=== PATIENT | female | born 1980 | race Caucasian/White ===

== ENCOUNTER 2016-12-26 10:27 | Inpatient (IN) | payer MEDICAID ==
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
[2016-12-26 11:33] LABS: % IMMATURE GRANULYOCYTES 0.4 % (0.0-1.1); ABSOLUTE IMMATURE GRANULOCYTES 0.03 10^3/uL (0.00-0.10); ADD DIFF? NO; ADD MORPH? NO; ADD SCAN? NO; ATYPICAL LYMPHOCYTE FLAG 40 (0-99); FRAGMENT RBC FLAG 0 (0-99); HEMATOCRIT 36.4 % (38.0-47.0); HEMOGLOBIN 12.3 g/dL (12.6-16.3); LEFT SHIFT FLG 0 (0-99); LIPEMIA HEMOLYSIS FLAG 90 (0-99); MEAN CELL HEMOGLOBIN 32.5 pg (27.9-34.1); MEAN CELL HEMOGLOBIN CONCENTR. 33.8 g/dL (32.4-36.7); MEAN CELL VOLUME 96.3 fL (81.5-99.8); MEAN PLATELET VOLUME 9.4 fL (8.7-11.7); PLATELET CLUMPS FLAG 0 (0-99); PLATELET COUNT 389 10^3/uL (150-400); RED BLOOD CELL COUNT 3.78 10^6/uL (4.18-5.33); RED CELL DISTRIBUTION WIDTH 14.6 % (11.5-15.2)
[2016-12-26] MEDS ORDERED: HYDROmorphONE/DILAUDID 1 MG/ML INJ IVP ONE ×3 (11:43→15:25)
[2016-12-26] MEDS ORDERED: ONDANSETRON 4 MG/2 ML VIAL ONE (11:51)
[2016-12-26] MEDS ORDERED: ONDANSETRON 4 MG/2 ML VIAL IVP ONE (11:52)
[2016-12-26 11:55] LABS: ALANINE AMINOTRANSFERASE 35 IU/L (9-52); ALBUMIN 2.9 g/dL (3.5-5.0); ALKALINE PHOSPHATASE 86 IU/L (38-126); ANION GAP 13 mEq/L (8-16); ASPARTATE AMINOTRANSFERASE 46 IU/L (14-46); BILIRUBIN,TOTAL 0.4 mg/dL (0.1-1.4); BILIRUBIN-CONJUGATED 0.4 mg/dL (0.0-0.5); CALCIUM 8.2 mg/dL (8.5-10.4); CARBON DIOXIDE 24 mEq/l (22-31); CHLORIDE 106 mEq/L (97-110); CREATININE 0.6 mg/dL (0.6-1.0); GLOMERULAR FILTRATION RATE > 60; GLUCOSE 71 mg/dL (70-100); POTASSIUM 3.6 mEq/L (3.5-5.2); SODIUM 143 mEq/L (134-144)
[2016-12-26] MEDS ORDERED: IOPAMIDOL (ISOVUE-300) 100 ML BTL ONE (12:17)
[2016-12-26 12:52] LABS: COLOR YELLOW; LEUKOCYTE ESTERASE,URINE NEGATIVE (NEGATIVE); NITRITE,URINE NEGATIVE (NEGATIVE)
[2016-12-26 12:57] LABS: MUCUS TRACE /lpf (NONE-1+); RBC,URINE 25-50 /hpf (0-3); WBC,URINE 15-25 /hpf (0-3)
[2016-12-26] MEDS ORDERED: HYDROmorphONE/DILAUDID 1 MG/ML INJ ONE (13:18)
[2016-12-26] MEDS ORDERED: ONDANSETRON DISINTEGRATING 4 MG TAB PO PRN (17:13)
[2016-12-26] MEDS ORDERED: ONDANSETRON 4 MG/2 ML VIAL IVP PRN (17:13)
[2016-12-26] MEDS ORDERED: NS 1,000 ML IV SCH (17:15)
[2016-12-26] MEDS: HYDROmorphONE/DILAUDID 1 MG/ML INJ IVP PRN ×2 (17:33→22:58)
[2016-12-26 18:01] LABS: HEMATOCRIT 35.3 % (38.0-47.0); HEMOGLOBIN 12.3 g/dL (12.6-16.3)
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
[2016-12-26] MEDS ORDERED: Linaclotide [Linzess] 145 MCG PO PRN (19:01)
[2016-12-26] MEDS ORDERED: ALBUTEROL 200 PUFFS/18 GM MDI IH PRN (19:01)
--- NOTE | 2016-12-26 19:21 | PDMN ---
Medical Necessity Medical necessity: Pt meets INPT criteria per MD; est. LOS >2 MN for eval/tx of ileus, suspected [id number] pancreatitis; hx small bowel resection/short bowel syndrome, endocarditis, chronic pancreatitis, CHI, seizure disorder, chronic head pain, multiple orthopedic surgeries per H&P.
[2016-12-26] MEDS: levETIRAcetam 250 MG TAB PO SCH (20:10)
[2016-12-26] MEDS: oxyCODONE IR 15 MG TAB PO SCH (20:10)
[2016-12-26] MEDS: clonazePAM 1 MG TAB PO PRN (20:11)
[2016-12-26] MEDS: PANTOPRAZOLE SODIUM 40 MG VIAL IVP SCH (20:12)
[2016-12-26] MEDS ORDERED: SUMAtriptan 25 MG TAB PO ONE (21:44)
--- NOTE | 2016-12-26 21:45 | HOSPPROG ---
Hospitalist Progress Note Assessment/Plan: discussed ct and ultrasound results w [employer] findings do not have malignant potential rec outpt follow up ultrasounds no pelvic complaints Objective: Vital Signs Temp Pulse Resp BP Pulse Ox 36.4 C 92 18 117/77 99 12/26/16 20:01 12/26/16 20:01 12/26/16 20:01 12/26/16 20:01 12/26/16 20:01 Laboratory Results 12/26/16 17:38 12/25/16 12/26/16 12/27/16 05:59 05:59 05:59 Intake Total 1125 Balance 1125 ICD10 Worksheet Patient Problems: Problems Problem Status Onset Abdominal pain Acute Paralytic ileus of large intestine Acute Pancreatitis Active
[2016-12-27 05:43] LABS: % IMMATURE GRANULYOCYTES 0.4 % (0.0-1.1); ABSOLUTE IMMATURE GRANULOCYTES 0.02 10^3/uL (0.00-0.10); ADD DIFF? NO; ADD MORPH? NO; ADD SCAN? NO; ATYPICAL LYMPHOCYTE FLAG 70 (0-99); FRAGMENT RBC FLAG 0 (0-99); HEMATOCRIT 32.5 % (38.0-47.0); HEMOGLOBIN 11.1 g/dL (12.6-16.3); LEFT SHIFT FLG 0 (0-99); LIPEMIA HEMOLYSIS FLAG 90 (0-99); MEAN CELL HEMOGLOBIN 33.1 pg (27.9-34.1); MEAN CELL HEMOGLOBIN CONCENTR. 34.2 g/dL (32.4-36.7); PLATELET CLUMPS FLAG 0 (0-99); PLATELET COUNT 335 10^3/uL (150-400); RED BLOOD CELL COUNT 3.35 10^6/uL (4.18-5.33)
[2016-12-27 05:54] LABS: ALANINE AMINOTRANSFERASE 31 IU/L (9-52); ALBUMIN 1.7 g/dL (3.5-5.0); ALKALINE PHOSPHATASE 64 IU/L (38-126); ANION GAP 7 mEq/L (8-16); ASPARTATE AMINOTRANSFERASE 45 IU/L (14-46); BILIRUBIN,TOTAL 0.3 mg/dL (0.1-1.4); CARBON DIOXIDE 20 mEq/l (22-31); CHLORIDE 112 mEq/L (97-110); CREATININE 0.6 mg/dL (0.6-1.0); GLOMERULAR FILTRATION RATE > 60; GLUCOSE 55 mg/dL (70-100); POTASSIUM 3.3 mEq/L (3.5-5.2); SODIUM 139 mEq/L (134-144); TOTAL PROTEIN 4.3 g/dL (6.3-8.2)
[2016-12-27] MEDS: PANTOPRAZOLE SODIUM 40 MG VIAL IVP SCH ×2 (08:51→20:41)
[2016-12-27] MEDS: levETIRAcetam 250 MG TAB PO SCH ×2 (08:51→20:27)
[2016-12-27] MEDS: oxyCODONE IR 15 MG TAB PO SCH ×3 (08:51→22:31)
[2016-12-27] MEDS: LIPASE 24,000/AMYLASE/PROTEASE (CREON) 1 CAP PO SCH ×3 (08:52→18:39)
[2016-12-27] MEDS: ENOXAPARIN 40 MG/0.4 ML SYR SC SCH (08:52)
[2016-12-27] MEDS ORDERED: Herbals/Supplements -Info Only PO SCH (09:00)
[2016-12-27] MEDS ORDERED: KETOROLAC 30 MG/1 ML SDV IVP ONE ×2 (11:54→22:00)
[2016-12-27] MEDS: clonazePAM 1 MG TAB PO PRN ×2 (12:22→20:27)
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
--- NOTE | 2016-12-27 14:19 | HOSPPROG ---
Hospitalist Progress Note Assessment/Plan: 36y female with c/o abd pain. First encounter, chart reviewed. D/W CM with pt. #Abd pain -likely related to chronic pancreatitis -cont supportive care -clear liquids if tolerated #Psych -appreciate CM -arrange outpt fu #Multiple chronic medical problems -stable #Ileus -normal bowel sounds -follow #Narcotic dep -cont home meds -no increase in narcotics #Dispo - in am if can stay hydrated -needs extensive outpt follow up Subjective: Tearful. Mild pain continues. Lots of life stress. Objective: Vital Signs Temp Pulse Resp BP Pulse Ox 37.2 C 107 H 16 84/49 L 93 12/27/16 08:00 12/27/16 08:00 12/27/16 08:00 12/27/16 08:00 12/27/16 08:00 Laboratory Results 12/27/16 05:29 12/27/16 05:29 12/26/16 12/27/16 12/28/16 05:59 05:59 05:59 Intake Total 1125 Balance 1125 - Physical Exam Constitutional: chronically ill appearing, uncomfortable, unkempt Eyes: PERRL, anicteric sclera, EOMI Ears, Nose, Mouth, Throat: moist mucous membranes, hearing normal, ears appear normal Cardiovascular: regular rate and rhythym, No JVD, No edema Respiratory: no respiratory distress, no rales or rhonchi, reduced air movement Gastrointestinal: distension, No tenderness, No ascites, No guarding Skin: warm, normal color, No erythema Musculoskeletal: normal joint ROM, no joint effusions, generalized weakness Neurologic: AAOx3 Psychiatric: anxious, depressed, poor insight, poor judgement ICD10 Worksheet Patient Problems: Problems Problem Status Onset Pancreatitis Active Paralytic ileus of large intestine Acute Abdominal pain Acute
[2016-12-27] MEDS ORDERED: diphenhydrAMINE 25 MG CAP PO ONE (22:00)
[2016-12-28 00:02] VITALS: O2SAT 95
[2016-12-28 05:30] LABS: ALANINE AMINOTRANSFERASE 36 IU/L (9-52); ALBUMIN 1.8 g/dL (3.5-5.0); ALKALINE PHOSPHATASE 59 IU/L (38-126); ANION GAP 8 mEq/L (8-16); ASPARTATE AMINOTRANSFERASE 37 IU/L (14-46); CALCIUM 7.2 mg/dL (8.5-10.4); CARBON DIOXIDE 22 mEq/l (22-31); CHLORIDE 112 mEq/L (97-110); CREATININE 0.6 mg/dL (0.6-1.0); GLOMERULAR FILTRATION RATE > 60; GLUCOSE 79 mg/dL (70-100); SODIUM 142 mEq/L (134-144)
[2016-12-28 05:38] LABS: BILIRUBIN,TOTAL < 0.1 mg/dL (0.1-1.4)
[2016-12-28 05:39] LABS: ADD MORPH? NO; ADD SCAN? YES; ATYPICAL LYMPHOCYTE FLAG 100 (0-99); FRAGMENT RBC FLAG 0 (0-99); HEMATOCRIT 29.6 % (38.0-47.0); HEMOGLOBIN 10.5 g/dL (12.6-16.3); LEFT SHIFT FLG 0 (0-99); LIPEMIA HEMOLYSIS FLAG 90 (0-99); MEAN CELL HEMOGLOBIN 33.8 pg (27.9-34.1); MEAN CELL HEMOGLOBIN CONCENTR. 35.5 g/dL (32.4-36.7); MEAN CELL VOLUME 95.2 fL (81.5-99.8); MEAN PLATELET VOLUME 9.1 fL (8.7-11.7); PLATELET CLUMPS FLAG 0 (0-99); PLATELET COUNT 325 10^3/uL (150-400); RED BLOOD CELL COUNT 3.11 10^6/uL (4.18-5.33); RED CELL DISTRIBUTION WIDTH 15.1 % (11.5-15.2)
[2016-12-28 05:58] LABS: ADD DIFF? YES; SCAN POSITIVE
[2016-12-28 06:05] LABS: HYPOCHROMIA 1+; PLATELET ESTIMATE ADEQUATE (ADEQ); POLYCHROMASIA 1+; TARGET CELLS 1+
[2016-12-28] MEDS ORDERED: fentaNYL 25 MCG PATCH TD SCH (09:00)
[2016-12-28] MEDS: PANTOPRAZOLE SODIUM 40 MG VIAL IVP SCH ×2 (09:37→11:15)
[2016-12-28] MEDS: levETIRAcetam 250 MG TAB PO SCH (09:39)
[2016-12-28] MEDS: LIPASE 24,000/AMYLASE/PROTEASE (CREON) 1 CAP PO SCH (09:39)
[2016-12-28] MEDS: ENOXAPARIN 40 MG/0.4 ML SYR SC SCH (09:39)
[2016-12-28] MEDS: oxyCODONE IR 15 MG TAB PO SCH (09:55)
[2016-12-28 10:15] VITALS: BP 105/72; PULSE 93; RESP 14; TEMP 97.9
--- NOTE | 2016-12-28 14:48 | GDS ---
[f rep st] DISCHARGE SUMMARY DISCHARGE DIAGNOSES: 1. Heme-positive stool. 2. Abdominal pain. 3. Ileus. 4. Chronic pancreatitis. 5. Narcotic dependency. STUDIES AND PROCEDURES DONE: 1. Abdominal x-ray. 2. Pelvic and renal ultrasound. 3. CT of the abdomen. PHYSICAL EXAM: GENERAL: The patient is alert. VITAL SIGNS: Afebrile at 36.6, pulse is 93, respira tory rate 14, blood pressure is 105/72. She is saturating 95% on room air. I have seen and evaluate d the patient on the day of discharge. HOSPITAL COURSE: The patient is a 36-year-old female who presented to the emergency room with compla ints of abdominal pain. She was evaluated and diagnosed with: 1. Chronic pancreatitis. During this hospitalization, the patient's lipase was normal; however, her exam and assessment were indicative of acute pancreatitis. She was placed on n.p.o. status, and her condition significantly improved. Her pain has improved, and she is tolerating a regular diet today at the time of disposition. She will continue on her Creon and follow up with Gastroenterology in [facility] outpatient setting. 2. Stress with underlying psychiatric situation. The patient did receive a consultation from krystal fermin during this hospitalization with extensive outpatient followup to be arranged. 3. Ileus, in the setting of potential acute pancreatitis. The patient's ileus has resolved. Abdomi nal x-ray has been repeated, and she had a bowel movement prior to disposition. She has positive bow el sounds. 4. Chronic and continuous narcotic dependency. The patient's previously prescribed narcotics have b een continued without adjustments in dosing. 5. Heme-positive stool with anemia. It was recommended that the patient have a followup with Gastro enterology in the outpatient setting. Likely needs an EGD outside the hospital. I have discussed e patient's followup with Dr. Marques Pickard of gastroenterology. He is in agreement with her outpa tient workup. The patient has been educated about her underlying condition of anemia and informed at she does need to follow up outside the hospital for further evaluation and identification of any p otential underlying medical condition. She is in agreement with this plan. DISPOSITION: The patient will be discharged home independently. PENDING STUDIES: There are no pending studies. FOLLOWUP: Followup will be with [facility] as well as Dr. Pickard of gastroenterology. I have not discontinued the patient's previously prescribed home medications nor have I provided her any prescriptions at the time of disposition. Please refer to EMR form for medication details. Again, I have educated the patient at length with the importance of outpatient followup and continued evaluation of any underlying conditions. I have instructed her to return to the emergency room if s he has any further signs of bleeding or increasing abdominal pain. She is in agreement with this mariely n. I spent greater than 35 minutes in the care, coordination, and management of this patient's dispositi on. /[id number]/MODL
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
== END 2016-12-28 12:56 | disposition home or self-care (01) | DRG 389 ==
LOC: OBSVTOIN 16:14 → F3E 16:48
PROVIDERS: ADMIT Internal Medicine; ATTEND Family Medicine
DX: K56.7 Ileus, unspecified (principal); R10.9 Unspecified abdominal pain; R19.5 Other fecal abnormalities; F11.20 Opioid dependence, uncomplicated; K86.1 Other chronic pancreatitis
CPT/HCPCS: 96374; J1170; J1200; J1650; J1885; J2405; Q9967

== ENCOUNTER → 2017-04-18 | Outpatient (CLI) | payer MEDICAID ==
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
== END ==
LOC: FCPNEURO 10:40
PROVIDERS: ATTEND Psychiatry & Neurology Neurology
DX: R56.9 Unspecified convulsions (principal); Z87.820 Personal history of traumatic brain injury